=== PATIENT | female | born 1990 | race Asian ===

== ENCOUNTER 2021-11-18 19:11 | Inpatient (IN) | payer BC ==
[~2021-11-18] VITALS: Ht 195.6 cm; Wt 57.6 kg
[2021-11-18] MEDS ORDERED: ONDANSETRON HCL 4MG/2ML INJ IV ONE (19:30)
[2021-11-18] MEDS ORDERED: SODIUM CHLORIDE 0.9% 1,000 ML IV ONE (19:30)
[2021-11-18] MEDS ORDERED: ACETAMINOPHEN 325MG TABLET PO ONE (19:30)
[2021-11-18 20:18] LABS: HEMATOCRIT. 24.2 % (36.0-48.0); HEMOGLOBIN. 8.3 g/dL (12.0-16.0); LYMPHOCYTES % 9.7 % (20.0-50.0); MEAN CORPUSCULAR VOLUME 90.4 fL (81.0-99.0); MEAN PLATELET VOLUME 7.8 fl (7.4-10.4); MONOCYTES % 4.6 % (2.0-8.0); NEUTROPHILS % 85.7 % (40.0-76.0); PLATELET 232 x1000/uL (130-400); RED BLOOD CELL COUNT 2.68 mill/uL (4.2-5.4); RED CELL DISTRIBUTION WIDTH 12.2 % (11.6-14.6)
[2021-11-18 20:24] LABS: HCG SCREEN NEGATIVE
[2021-11-18 20:31] LABS: CHLORIDE 112 mEq/L (98-107)
[2021-11-18] MEDS ORDERED: ONDANSETRON HCL 4MG/2ML INJ IV NR (21:15)
[2021-11-18] MEDS ORDERED: FENTANYL CITRATE/PF 50MCG/ML 2ML VIAL IV NR (21:15)
[2021-11-18 21:18] LABS: *AMPHETAMINES SCREEN URINE NEGATIVE (NEGATIVE); *BARBITURATES SCREEN URINE NEGATIVE (NEGATIVE); *COCAINE SCREEN URINE NEGATIVE (NEGATIVE)
[2021-11-18 21:19] LABS: METHADONE URINE SCREEN NEGATIVE (NEGATIVE); OPIATES URINE SCREEN NEGATIVE (NEGATIVE); PHENCYCLIDINE URINE SCREEN NEGATIVE (NEGATIVE)
[2021-11-18 21:25] LABS: *BENZODIAZEPINES SCREEN URINE PRESUMTIVE POSITIVE (NEGATIVE)
[2021-11-18 21:26] LABS: CANNABINOID URINE SCREEN PRESUMTIVE POSITIVE (NEGATIVE)
[2021-11-19] MEDS ORDERED: MORPHINE SULFATE 2 MG/ML CPJ (NOT FOR IM USE) IV PRN (04:45)
[2021-11-19] MEDS ORDERED: CLONIDINE 0.1MG TABLET PO PRN (10:45)
[2021-11-19] MEDS ORDERED: HYDROCODONE/ACETAMINOPHEN 10/325MG TABLET PO PRN (10:45)
[2021-11-19] MEDS ORDERED: LORAZEPAM 0.5MG TABLET PO PRN (10:45)
[2021-11-19] MEDS ORDERED: ONDANSETRON HCL 4MG/2ML INJ IV PRN (10:45)
[2021-11-19] MEDS ORDERED: IPRATROPIUM/ALBUTEROL 0.5-3(2.5)MG/3ML NEB HHN PRN (10:45)
[2021-11-19] MEDS ORDERED: DOCUSATE SODIUM 100MG CAPSULE PO PRN (10:45)
[2021-11-19] MEDS ORDERED: HYDROCODONE/ACETAMINOPHEN 5/325MG TABLET PO PRN (10:45)
[2021-11-19] MEDS ORDERED: ACETAMINOPHEN 325MG TABLET PO PRN ×2 (10:45)
[2021-11-19 12:00] VITALS: BP 100/53
[2021-11-19 12:13] LABS: INR 0.9; PROTHROMBIN TIME 10.1 sec (9.6-11.0)
[2021-11-19 12:26] LABS: TOTAL IRON BINDING CAPACITY 313 ug/dL (250-450)
[2021-11-19 12:44] LABS: FOLIC ACID (FOLATE) SERUM 18.6 ng/mL (>5.38)
[2021-11-19 13:37] VITALS: BP 122/65
[2021-11-19] MEDS ORDERED: TRAM50TA3 MT (15:23)
[2021-11-19] MEDS ORDERED: ACET650T37 MT (15:23)
[2021-11-19] MEDS ORDERED: NALO4SPR BOTHNSTRLS (15:23)
[2021-11-19] MEDS ORDERED: HYDR-4001 MT (15:23)
[2021-11-19 15:25] VITALS: BP 100/53
[2021-11-19 16:00] VITALS: BP 101/41
== END 2021-11-19 15:56 | disposition home or self-care (01) | DRG 760 ==
LOC: ER 19:11 → MICUSO 23:19 → 6EST 11-19 09:52
PROVIDERS: ADMIT Internal Medicine; ATTEND Internal Medicine
DX: N93.9 Abnormal uterine and vaginal bleeding, unspecified (principal); K66.1 Hemoperitoneum; R18.8 Other ascites; S36.92XA Contusion of unspecified intra-abdominal organ, initial encounter; E88.09 Other disorders of plasma-protein metabolism, not elsewhere classified; D72.829 Elevated white blood cell count, unspecified; D50.0 Iron deficiency anemia secondary to blood loss (chronic); Z20.822 Contact with and (suspected) exposure to COVID-19
CPT/HCPCS: 36415; 71045; 76856; 80053; 80305; 82607; 82728; 82746; 83540; 83550; 84145; 84703; 85025; 85044; 86850; 86900; 87426; 99291; J2270; J2405; J3010; J7030